=== PATIENT | female | born 1980 | race Caucasian/White ===

== ENCOUNTER 2023-01-30 05:31 | Day surgery (SDC) | payer OTHER ==
[~2023-01-30] VITALS: Ht 160 cm; Wt 104.5 kg
[~2023-01-30 05:31] MED LIST: ACYC-138 PO; AMLO-258 PO; RINGERS SOLUTION,LACTATED 1,000 ML IV ONE
[2023-01-30] MEDS ORDERED: LIDOCAINE/PF 2% 5 ML SYRINGE IVP ONE (05:32)
[2023-01-30] MEDS ORDERED: FentaNYL CITRATE PF 100 MCG/2 ML VIAL IVP ONE (05:32)
[2023-01-30] MEDS ORDERED: ONDANSETRON HCL 4 MG/2 ML VIAL IVP ONE (05:32)
[2023-01-30] MEDS ORDERED: CeFAZolin SODIUM 1 GM VIAL IVP ONE (05:32)
[2023-01-30] MEDS ORDERED: METOCLOPRAMIDE HCL 5 MG/ML 2 ML VIAL IVP ONE (05:32)
[2023-01-30] MEDS ORDERED: KETOROLAC TROMETHAMINE 60 MG/2 ML VIAL IM ONE (05:32)
[2023-01-30] MEDS ORDERED: PROPOFOL 1% 20 ML VIAL IVP ONE (05:32)
[2023-01-30] MEDS ORDERED: MIDAZOLAM HCL 2 MG/2 ML VIAL IVP ONE (05:32)
[2023-01-30] MEDS ORDERED: CETI-450 PO (05:36)
[2023-01-30] MEDS ORDERED: BUPR-50 PO (05:36)
[2023-01-30] MEDS ORDERED: DULO-113 PO (05:36)
[2023-01-30] MEDS ORDERED: OMEP20 PO (05:36)
[2023-01-30] MEDS ORDERED: TRAZ-257 PO (05:36)
[2023-01-30] MEDS ORDERED: GABA-1181 PO (05:36)
[2023-01-30] MEDS ORDERED: DULO20CA71 PO (05:36)
[2023-01-30] MEDS ORDERED: LISI-893 PO (05:36)
[2023-01-30 05:57] LABS: BASOPHILS % (AUTO) 0.4 % (0.0-2.0); EOSINOPHILS % (AUTO) 1.8 % (1.0-6.0); HEMATOCRIT 36.8 % (36-46); HEMOGLOBIN 11.9 g/dL (12.0-16.0); LYMPHOCYTES # (AUTO) 2.6 K/uL (1.0-4.8); LYMPHOCYTES % (AUTO) 35.7 % (22.0-44.0); MEAN CORPUSCULAR HEMOGLOBIN 26.8 pg (26.0-34.0); MEAN CORPUSCULAR HGB CONC 32.3 G/dL (31.0-37.0); MEAN CORPUSCULAR VOLUME 83 fL (80-100); MONOCYTES # (AUTO) 0.4 K/uL (0.1-1.0); NEUTROPHILS % (AUTO) 56.1 % (40.0-70.0); PLATELET COUNT (AUTO) 283 K/uL (150-450); RED BLOOD CELL COUNT(AUTO) 4.43 MIL/uL (4.00-5.20); RED CELL DISTRIBUTION WIDTH 15.6 % (11.5-14.5); WHITE BLOOD COUNT (AUTO) 7.2 K/uL (4.5-11.0)
[2023-01-30 06:05] LABS: ANION GAP 7 mmol/L (8-16); CALCIUM, TOTAL 9.1 mg/dL (8.8-10.5); CARBON DIOXIDE 30 mmol/L (22-29); CHLORIDE 102 mmol/L (98-107); CREATININE 0.71 mg/dL (0.60-1.30); GLOMERULAR FILTR. RATE CALC > 60 mL/min (>60); GLUCOSE,RANDOM 108 mg/dL (70-110); SODIUM SERUM 139 mmol/L (136-145); UREA NITROGEN, BLOOD 11 mg/dL (7-18)
[2023-01-30] MEDS ORDERED: BUPIVACAINE HCL/PF 0.25% 30 ML VIAL ONE (06:28)
[2023-01-30] MEDS ORDERED: LIDOCAINE/PF 1% 30 ML VIAL ONE (06:28)
[2023-01-30] MEDS ORDERED: SODIUM CL IRRIG SOLN BAG 3,000 ML IRRIG ONE (06:37)
[2023-01-30] MEDS ORDERED: VANCOMYCIN HCL 1 GM/VIAL ONE (07:57)
[2023-01-30] MEDS ORDERED: HYDROmorphone HCL 2 MG/ML SYRINGE IVP PRN (08:15)
[2023-01-30] MEDS ORDERED: FentaNYL CITRATE PF 100 MCG/2 ML VIAL IVP PRN (08:15)
[2023-01-30] MEDS ORDERED: RINGERS SOLUTION,LACTATED 1,000 ML IV ONE (08:27)
[2023-01-30] MEDS ORDERED: OXYGEN THERAPY IH SCH (20:00)
== END 2023-01-30 10:15 | disposition home or self-care (01) ==
LOC: SURGERY 05:31
PROVIDERS: ATTEND Podiatrist Primary Podiatric Medicine
DX: M20.41 Other hammer toe(s) (acquired), right foot (principal); I10 Essential (primary) hypertension
CPT/HCPCS: 80048; 84703; 85025; 36415; 73630; 28285; J3490 ×3; J2704; J0690; J3010; J1885; J2765; J2250; J2405; J3370; J7120